=== PATIENT | male | born 1990 | race American Indian/Alaskan Native ===

== ENCOUNTER 2019-04-29 16:40 | Emergency (ER) | payer SELFPAY ==
--- NOTE | 2019-04-29 17:52 | Emergency Department Report ---
Blank Doc - Documentation Documentation: 29-year-old male that presents with n/v and abdominal pain. This initial assessment/diagnostic orders/clinical plan/treatment(s) is/are subject to change based on patient's health status, clinical progression and re- assessment by fellow clinical providers in the ED. Further treatment and workup at subsequent clinical providers discretion. Patient/guardians urged not to elope from the ED as their condition may be serious if not clinically assessed and managed. Initial orders include: 1- Patient sent to [facility] for further evaluation and treatment 2- UA 3- labs
[2019-04-29 18:52] LABS: Bilirubin,Urine NEG (Negative); Blood,Urine NEG (Negative); Color,Urine Straw (Yellow); Protein,Urine <15 mg/dL mg/dL (Negative); Urobilinogen,Urine < 2.0 mg/dL (<2.0)
[2019-04-29 19:10] LABS: Basophils # (Auto) 0.1 K/mm3 (0.0-0.1); Basophils % (Auto) 1.3 % (0.0-1.8); Eosinophils # (Auto) 0.1 K/mm3 (0.0-0.4); Eosinophils % (Auto) 1.9 % (0.0-4.3); Hematocrit 42.9 % (35.5-45.6); Hemoglobin 14.5 gm/dl (11.8-15.2); Lymphocytes # (Auto) 1.7 K/mm3 (1.2-5.4); Lymphocytes % (Auto) 31.1 % (13.4-35.0); Mean Corpuscular HGB Conc 34 % (32-34); Mean Corpuscular Volume 98 fl (84-94); Monocytes # (Auto) 0.5 K/mm3 (0.0-0.8); Monocytes % (Auto) 10.1 % (0.0-7.3); Platelet Count 230 K/mm3 (140-440); Red Blood Count 4.36 M/mm3 (3.65-5.03); Red Cell Distribution Width 13.9 % (13.2-15.2)
[2019-04-29 19:34] LABS: Alanine Aminotransferase 8 units/L (7-56); Albumin 4.6 g/dL (3.9-5); BUN/Creatinine Ratio 10; Blood Urea Nitrogen 8 mg/dL (9-20); Calcium 9.2 mg/dL (8.4-10.2); Hemolysis Index 9
[2019-04-29 20:35] VITALS: BP 122/74
[2019-04-29] MEDS ORDERED: ZOFRAN ORAL LIQ PO ONE (21:35)
[2019-04-29] MEDS ORDERED: BENTYL IM ONE (21:35)
[2019-04-29] MEDS ORDERED: CARAFATE PO ONE (21:35)
--- NOTE | 2019-04-29 21:36 | Emergency Department Report ---
ED General Adult HPI - General Chief complaint: Nausea/Vomiting/Diarrhea Stated complaint: DIARRHEA/CONSTIPATION Time Seen by Provider: 04/29/19 17:51 Source: patient, RN notes reviewed Mode of arrival: Ambulatory Limitations: No Limitations - History of Present Illness Initial comments: This is a pleasant 29-year-old gentleman. This patient is not known to this provider previously. He recently moved here from [facility]. Past medical history includes GERD, anxiety, IBS, reports colonoscopy in 2015, which she believes was negative, history of cholecystectomy in [place] in February. It is now April. He presents to the ER with a complaint of intermittent abdominal cramping, intermittent nausea, no vomiting, and loose bowel movements. He describes his diarrhea as turquoise colored, followed by green, followed by yellow. He reports 5 bowel movements within the past 24 hours. He denies hematemesis and bright red blood per rectum. He denies urinary symptoms and testicular pain. His symptoms are intermittent, did not radiate anywhere, and do not have exacerbating or relieving factors that he is aware of. He occasionally consumes tobacco, and is occasionally exposed to marijuana. -: Gradual Location: abdomen Radiation: non-radiation Severity scale (0 -10): 1 Quality: aching Consistency: intermittent Improves with: none Worsens with: none - Related Data Previous Rx's Medication Instructions Recorded Last Taken Type Dicyclomine [Bentyl] 10 mg PO QID PRN #20 capsule 04/29/19 Unknown Rx Famotidine [Pepcid] 20 mg PO BID #60 tablet 04/29/19 Unknown Rx Mercedes Root [Mercedes] 250 mg PO QID PRN #30 capsule 04/29/19 Unknown Rx Metoclopramide [Reglan] 10 mg PO QID PRN #30 tablet 04/29/19 Unknown Rx Allergies Allergy/AdvReac Type Severity Reaction Status Date / Time No Known Allergies Allergy Unverified 04/29/19 17:52 ED Review of Systems ROS: Stated complaint: DIARRHEA/CONSTIPATION Other details as noted in HPI Constitutional: denies: fever Eyes: denies: eye discharge ENT: denies: congestion Respiratory: denies: wheezing Cardiovascular: denies: chest pain, syncope Gastrointestinal: abdominal pain, nausea, diarrhea Genitourinary: denies: dysuria, testicular pain Musculoskeletal: denies: back pain, arthralgia, myalgia Skin: denies: lesions Neurological: denies: confusion Hematological/Lymphatic: denies: easy bleeding ED Past Medical Hx - Past Medical History Previous Medical History?: No - Surgical History Past Surgical History?: Yes Hx Cholecystectomy: Yes - Social History Smoking Status: Current Every Day Smoker Substance Use Type: None - Medications Home Medications: Home Medications Medication Instructions Recorded Confirmed Last Taken Type Dicyclomine [Bentyl] 10 mg PO QID PRN #20 capsule 04/29/19 Unknown Rx Famotidine [Pepcid] 20 mg PO BID #60 tablet 04/29/19 Unknown Rx Mercedes Root [Mercedes] 250 mg PO QID PRN #30 capsule 04/29/19 Unknown Rx Metoclopramide [Reglan] 10 mg PO QID PRN #30 tablet 04/29/19 Unknown Rx ED Physical Exam - General Limitations: No Limitations General appearance: alert, in no apparent distress - Head Head exam: Present: atraumatic, normocephalic - Eye Eye exam: Present: normal appearance, EOMI. Absent: nystagmus - ENT ENT exam: Present: normal exam, normal orophraynx, mucous membranes moist, norm al external ear exam - Neck Neck exam: Present: normal inspection, full ROM. Absent: tenderness, meningismus - Respiratory Respiratory exam: Present: normal lung sounds bilaterally. Absent: respiratory distress - Cardiovascular Cardiovascular Exam: Present: regular rate, normal rhythm, normal heart sounds. Absent: bradycardia, tachycardia, irregular rhythm, systolic murmur, diastolic murmur, rubs, gallop - GI/Abdominal GI/Abdominal exam: Present: soft, normal bowel sounds. Absent: distended, tenderness, guarding, rebound, rigid, pulsatile mass - Rectal Rectal exam: Present: deferred - Extremities Exam Extremities exam: Present: normal inspection, full ROM, other (2+ pulses noted in the bilateral upper, lower extremities. There is no long bone tenderness. Musculoskeletal compartments are soft. The pelvis is stable.). Absent: pedal edema, calf tenderness - Back Exam Back exam: Present: normal inspection, full ROM. Absent: tenderness, CVA tenderness (R), CVA tenderness (L), paraspinal tenderness, vertebral tenderness - Neurological Exam Neurological exam: Present: alert, oriented X3, normal gait, other (there is no facial droop. The tongue is midline. Extraocular movements are intact bilaterally. Patient speaking in full complete sentences. Shoulder shrug is intact bilaterally. Hearing is grossly intact bilaterally. Visual acuity intact to finger counting and color perception at a close distance. 5/5 strength 4 extremities. Sensation intact to light touch in 4 extremities.). Absent: motor sensory deficit - Psychiatric Psychiatric exam: Present: flat affect - Skin Skin exam: Present: warm, dry, intact, normal color. Absent: rash ED Course Vital Signs 04/29/19 04/29/19 16:54 20:33 Temperature 97.9 F 98.1 F Pulse Rate 73 78 Respiratory 16 18 Rate Blood Pressure 102/60 Blood Pressure 122/74 [Right] O2 Sat by Pulse 98 100 Oximetry ED Medical Decision Making - Lab Data Result diagrams: 04/29/19 18:53 04/29/19 18:53 Vital Signs 04/29/19 04/29/19 16:54 20:33 Temperature 97.9 F 98.1 F Pulse Rate 73 78 Respiratory 16 18 Rate Blood Pressure 102/60 Blood Pressure 122/74 [Right] O2 Sat by Pulse 98 100 Oximetry Lab Results 04/29/19 04/29/19 04/29/19 Range/Units 18:20 18:53 18:53 WBC 5.4 (4.5-11.0) K/mm3 RBC 4.36 (3.65-5.03) M/mm3 Hgb 14.5 (11.8-15.2) gm/dl Hct 42.9 (35.5-45.6) % MCV 98 H (84-94) fl MCH 33 H (28-32) pg MCHC 34 (32-34) % RDW 13.9 (13.2-15.2) % Plt Count 230 (140-440) K/mm3 Lymph % (Auto) 31.1 (13.4-35.0) % [place] % (Auto) 10.1 H (0.0-7.3) % Eos % (Auto) 1.9 (0.0-4.3) % Baso % (Auto) 1.3 (0.0-1.8) % Lymph # 1.7 (1.2-5.4) K/mm3 [place] # 0.5 (0.0-0.8) K/mm3 Eos # 0.1 (0.0-0.4) K/mm3 Baso # 0.1 (0.0-0.1) K/mm3 Seg Neutrophils % 55.6 (40.0-70.0) % Seg Neutrophils # 3.0 (1.8-7.7) K/mm3 Sodium 142 (137-145) mmol/L Potassium 4.1 (3.6-5.0) mmol/L Chloride 103.1 (98-107) mmol/L Carbon Dioxide 25 (22-30) mmol/L Anion Gap 18 mmol/L BUN 8 L (9-20) mg/dL Creatinine 0.8 (0.8-1.5) mg/dL Estimated GFR > 60 ml/min BUN/Creatinine Ratio 10 % Glucose 99 (75-100) mg/dL Calcium 9.2 (8.4-10.2) mg/dL Total Bilirubin 0.40 (0.1-1.2) mg/dL AST 17 (5-40) units/L ALT 8 (7-56) units/L Alkaline Phosphatase 75 (35-129) units/L Total Protein 7.2 (6.3-8.2) g/dL Albumin 4.6 (3.9-5) g/dL Albumin/Globulin Ratio 1.8 % Lipase 17 (13-60) units/L Urine Color Straw (Yellow) Urine Turbidity Clear (Clear) Urine pH 8.0 H (5.0-7.0) Ur Specific [place] 1.006 (1.003-1.030) Urine Protein <15 mg/dl (Negative) mg/dL Urine Glucose (UA) Neg (Negative) mg/dL Urine Ketones Neg (Negative) mg/dL Urine Blood Neg (Negative) Urine Nitrite Neg (Negative) Urine Bilirubin Neg (Negative) Urine Urobilinogen < 2.0 (<2.0) mg/dL Ur Leukocyte Esterase Lg (Negative) Urine WBC (Auto) 14.0 H (0.0-6.0) /HPF Urine RBC (Auto) 1.0 (0.0-6.0) /HPF - Medical Decision Making Differential diagnosis, including but not limited to: IBS, viral syndrome, GERD, gastritis Assessment and plan: 29-year-old gentleman with history of GERD and IBS with complaint of nausea, abdominal cramping and diarrhea. He is afebrile with reassuring vital signs. His abdomen is soft and benign, with no rebound, guarding or peritoneal signs. His screening laboratory studies were unrem arkable for significant condition. During his history and physical, his abdomen is completely soft and benign during examination, and he carries on a full conversation with this provider. His urinalysis is reviewed and appreciated, however, he did not endorse any urinary symptoms or testicular pain to this provider. We will discharge the patient with as needed nausea medication, nonsedating nonnarcotic pain medication, and he can follow-up with an outpatient primary care doctor and/or seamer. Return precautions are reviewed with patient. He did ask for information regarding insurance in this state, and he was referred to the [employer] website. The patient does not appear to have an emergent medical condition at this time, and he is medically suitable for discharge. Critical care attestation.: If time is entered above; I have spent that time in minutes in the direct care of this critically ill patient, excluding procedure time. ED Disposition Clinical Impression: History of IBS Disposition: DC-01 TO HOME OR SELFCARE Is pt being admited?: No Does the pt Need Aspirin: No Condition: Stable Additional Instructions: Avoid consumption of Motrin, ibuprofen, Naprosyn, Aleve. Avoid consumption of heavy and/or spicy foods. Avoid exposure to tobacco, marijuana and inhalational products. Take the medications as needed and/or directed. Cultures were sent today, and results will be available in the next week. Have a primary care doctor contact the medical records department to obtain urine culture results. Follow-up with the primary care doctor or GI specialist within the next month. Return to emergency room right away with projectile vomiting, change in mental status, confusion, inability to tolerate liquid feeds, new, worsened or different symptoms not present on the initial emergency room evaluation. Referrals: [facility] [Provider Group] - 3-5 Days [facility] [Provider Group] - 3-5 Days
== END 2019-04-29 22:19 | disposition home or self-care (01) ==
LOC: ED 16:40
DX: K58.8 Other irritable bowel syndrome (principal); F17.200 Nicotine dependence, unspecified, uncomplicated; Z90.49 Acquired absence of other specified parts of digestive tract; Z79.899 Other long term (current) drug therapy
CPT/HCPCS: 36415; 80053; 81001; 83690; 85025; 87086; 96372; 99283; J0500; Q0162

== ENCOUNTER 2019-05-13 10:59 | Emergency (ER) | payer SELFPAY ==
--- NOTE | 2019-05-13 11:19 | Event Note ---
ED Screening Note Date of service: 05/13/19 Time: 11:17 ED Screening Note: 29 y o male with recent gall bladder removal 02/2019 presents with abd pain with nausea and one episode of loose stools today no active vom This initial assessment/diagnostic orders/clinical plan/treatment(s) is/are s ubject to change based on patients health status, clinical progression and re- assessment by fellow clinical providers in the ED. Further treatment and workup at subsequent clinical providers discretion. Patient/guardian urged not to elope from the ED as their condition may be serious if not clinically assessed and managed. Initial orders include: labs [facility] eval
[2019-05-13 11:54] LABS: Basophils % (Auto) 0.5 % (0.0-1.8); Eosinophils # (Auto) 0.1 K/mm3 (0.0-0.4); Eosinophils % (Auto) 0.9 % (0.0-4.3); Hematocrit 45.2 % (35.5-45.6); Hemoglobin 14.8 gm/dl (11.8-15.2); Lymphocytes # (Auto) 2.5 K/mm3 (1.2-5.4); Lymphocytes % (Auto) 38.6 % (13.4-35.0); Mean Corpuscular HGB Conc 33 % (32-34); Mean Corpuscular Volume 87 fl (84-94); Monocytes # (Auto) 0.4 K/mm3 (0.0-0.8); Monocytes % (Auto) 6.8 % (0.0-7.3); Platelet Count 192 K/mm3 (140-440); Red Blood Count 5.17 M/mm3 (3.65-5.03); Red Cell Distribution Width 14.3 % (13.2-15.2)
[2019-05-13 12:19] LABS: Alanine Aminotransferase 26 units/L (7-56); Albumin 4.8 g/dL (3.9-5); BUN/Creatinine Ratio 11; Blood Urea Nitrogen 10 mg/dL (9-20); Calcium 9.7 mg/dL (8.4-10.2); Hemolysis Index 8
[2019-05-13] MEDS ORDERED: FAMOTIDINE 20 MG/2 ML INJ IV ONE (12:41)
[2019-05-13] MEDS ORDERED: DICYCLOMINE 20 MG/2 ML INJ IM ONE (12:41)
[2019-05-13] MEDS ORDERED: SODIUM CHLORIDE 0.9% 1000 ML 1,000 ML IV ONE (12:41)
[2019-05-13] MEDS ORDERED: ONDANSETRON 4 MG/2 ML INJ IV ONE (12:41)
[2019-05-13] MEDS ORDERED: KETOROLAC 30 MG/1 ML INJ IV ONE (12:41)
[2019-05-13 14:18] LABS: Bilirubin,Urine NEG (Negative); Blood,Urine NEG (Negative); Color,Urine Yellow (Yellow); Protein,Urine <15 mg/dL mg/dL (Negative); Urobilinogen,Urine < 2.0 mg/dL (<2.0)
--- NOTE | 2019-05-13 14:43 | Cat Scan Report ---
CT ABDOMEN AND PELVIS WITHOUT CONTRAST HISTORY: Nausea vomiting diarrhea with hematochezia COMPARISON: None. TECHNIQUE: Axial CT images were obtained through the abdomen and pelvis without IV contrast. Sagittal and coronal reformatted images. All CT scans at this location are performed using CT dose reduction for ALARA by means of automated exposure control. FINDINGS: CT ABDOMEN: Lung Bases: Clear. Liver: No significant abnormality. Biliary: Cholecystectomy. Spleen: No significant abnormality. Unenlarged. Pancreas: No significant abnormality. Adrenals: No significant abnormality. Kidneys: No significant abnormality. Lymphatics: No lymphadenopathy. Vasculature: No significant abnormality. Bowel/Peritoneum: No significant abnormality. No free air. No free fluid. Normal appendix. No obvious rectal abnormality. CT PELVIS: : No significant abnormality. Osseous Structures: No significant abnormality. Additional Findings: None IMPRESSION: No acute process is identified in the abdomen or pelvis. Signer Name: Rick Ambrose Jr, MD Signed: 05/13/2019 2:38 PM Workstation Name: [id number]
--- NOTE | 2019-05-13 16:03 | Emergency Department Report ---
ED Abdominal Pain HPI - General Chief Complaint: Abdominal Pain Stated Complaint: ABD PAIN Time Seen by Provider: 05/13/19 12:28 Source: patient Mode of arrival: Ambulatory Limitations: No Limitations - History of Present Illness Initial Comments: Patient is a 29-year-old male with past history of irritable bowel syndrome who is presenting with 5 days of nausea vomiting and crampy diffuse abdominal pain. Patient states he has gallbladder removed several months ago with the hopes that this will improve his symptoms. Patient states that symp toms have continued. Patient states that 2 days ago he noticed some blood in his stool however this has resolved. Pain is 6 out of 10 in severity as diffuse crampy. Severity scale (0 -10): 9 - Related Data Previous Rx's Medication Instructions Recorded Last Taken Type Dicyclomine [Bentyl] 10 mg PO QID PRN #20 capsule 04/29/19 Unknown Rx Famotidine [Pepcid] 20 mg PO BID #60 tablet 04/29/19 Unknown Rx Mercedes Root [Mercedes] 250 mg PO QID PRN #30 capsule 04/29/19 Unknown Rx Metoclopramide [Reglan] 10 mg PO QID PRN #30 tablet 04/29/19 Unknown Rx Dicyclomine [Bentyl] 20 mg PO QID #10 tablet 05/13/19 Unknown Rx Ondansetron [Zofran Odt] 4 mg PO Q8HR #10 tab.rapdis 05/13/19 Unknown Rx traMADol [Ultram] 50 mg PO Q6HR PRN #12 tablet 05/13/19 Unknown Rx Allergies Allergy/AdvReac Type Severity Reaction Status Date / Time No Known Allergies Allergy Unverified 04/29/19 17:52 ED Review of Systems ROS: Stated complaint: ABD PAIN Other details as noted in HPI Comment: All other systems reviewed and negative ED Past Medical Hx - Past Medical History Previous Medical History?: No - Surgical History Past Surgical History?: Yes Hx Cholecystectomy: Yes Additional Surgical History: tonsillectomy,scrotum surgery - Social History Smoking Status: Current Every Day Smoker Substance Use Type: Marijuana - Medications Home Medications: Home Medications Medication Instructions Recorded Confirmed Last Taken Type Dicyclomine [Bentyl] 10 mg PO QID PRN #20 capsule 04/29/19 Unknown Rx Famotidine [Pepcid] 20 mg PO BID #60 tablet 04/29/19 Unknown Rx Mercedes Root [Mercedes] 250 mg PO QID PRN #30 capsule 04/29/19 Unknown Rx Metoclopramide [Reglan] 10 mg PO QID PRN #30 tablet 04/29/19 Unknown Rx Dicyclomine [Bentyl] 20 mg PO QID #10 tablet 05/13/19 Unknown Rx Ondansetron [Zofran Odt] 4 mg PO Q8HR #10 tab.rapdis 05/13/19 Unknown Rx traMADol [Ultram] 50 mg PO Q6HR PRN #12 tablet 05/13/19 Unknown Rx ED Physical Exam - General Limitations: No Limitations General appearance: alert, in distress - Head Head exam: Present: atraumatic, normocephalic - Eye Eye exam: Present: normal appearance - ENT ENT exam: Present: mucous membranes moist - Neck Neck exam: Present: normal inspection - Respiratory Respiratory exam: Present: normal lung sounds bilaterally. Absent: respiratory distress, wheezes, rales, rhonchi - Cardiovascular Cardiovascular Exam: Present: regular rate, normal rhythm, normal heart sounds. Absent: systolic murmur, diastolic murmur, rubs, gallop - GI/Abdominal GI/Abdominal exam: Present: soft, tenderness, normal bowel sounds. Absent: distended, guarding, rebound, rigid - Rectal Rectal exam: Present: deferred - Extremities Exam Extremities exam: Present: normal inspection - Back Exam Back exam: Present: normal inspection - Neurological Exam Neurological exam: Present: alert, oriented X3 - Psychiatric Psychiatric exam: Present: normal affect, normal mood - Skin Skin exam: Present: warm, dry, intact, normal color. Absent: rash ED Medical Decision Making - Lab Data Result diagrams: 05/13/19 11:42 05/13/19 11:42 Lab Results 05/13/19 05/13/19 05/13/19 Range/Units 11:42 11:42 12:37 WBC 6.4 (4.5-11.0) K/mm3 RBC 5.17 H (3.65-5.03) M/mm3 Hgb 14.8 (11.8-15.2) gm/dl Hct 45.2 (35.5-45.6) % MCV 87 (84-94) fl MCH 29 (28-32) pg MCHC 33 (32-34) % RDW 14.3 (13.2-15.2) % Plt Count 192 (140-440) K/mm3 Lymph % (Auto) 38.6 H (13.4-35.0) % [place] % (Auto) 6.8 (0.0-7.3) % Eos % (Auto) 0.9 (0.0-4.3) % Baso % (Auto) 0.5 (0.0-1.8) % Lymph # 2.5 (1.2-5.4) K/mm3 [place] # 0.4 (0.0-0.8) K/mm3 Eos # 0.1 (0.0-0.4) K/mm3 Baso # 0.0 (0.0-0.1) K/mm3 Seg Neutrophils % 53.2 (40.0-70.0) % Seg Neutrophils # 3.4 (1.8-7.7) K/mm3 Sodium 141 (137-145) mmol/L Potassium 4.0 (3.6-5.0) mmol/L Chloride 103.2 (98-107) mmol/L Carbon Dioxide 25 (22-30) mmol/L Anion Gap 17 mmol/L BUN 10 (9-20) mg/dL Creatinine 0.9 (0.8-1.5) mg/dL Estimated GFR > 60 ml/min BUN/Creatinine Ratio 11 % Glucose 88 (75-100) mg/dL Calcium 9.7 (8.4-10.2) mg/dL Total Bilirubin 0.70 (0.1-1.2) mg/dL AST 25 (5-40) units/L ALT 26 (7-56) units/L Alkaline Phosphatase 73 (35-129) units/L Total Protein 7.9 (6.3-8.2) g/dL Albumin 4.8 (3.9-5) g/dL Albumin/Globulin Ratio 1.5 % Lipase 43 (13-60) units/L Urine Color Yellow (Yellow) Urine Turbidity Turbid (Clear) Urine pH 8.0 H (5.0-7.0) Ur Specific [place] 1.015 (1.003-1.030) Urine Protein <15 mg/dl (Negative) mg/dL Urine Glucose (UA) Neg (Negative) mg/dL Urine Ketones Neg (Negative) mg/dL Urine Blood Neg (Negative) Urine Nitrite Neg (Negative) Urine Bilirubin Neg (Negative) Urine Urobilinogen < 2.0 (<2.0) mg/dL Ur Leukocyte Esterase Neg (Negative) Urine WBC (Auto) Not Reportable Urine RBC (Auto) Not Reportable - Radiology Data CT ABDOMEN AND PELVIS WITHOUT CONTRAST HISTORY: Nausea vomiting diarrhea with hematochezia COMPARISON: None. TECHNIQUE: Axial CT images were obtained through the abdomen and pelvis without IV contrast. Sagittal and coronal reformatted images. All CT scans at this location are performed using CT dose reduction for ALARA by means of automated exposure control. FINDINGS: CT ABDOMEN: Lung Bases: Clear. Liver: No significant abnormality. Biliary: Cholecystectomy. Spleen: No significant abnormality. Unenlarged. Pancreas: No significant abnormality. Adrenals: No significant abnormality. Kidneys: No significant abnormality. Lymphatics: No lymphadenopathy. Vasculature: No significant abnormality. Bowel/Peritoneum: No significant abnormality. No free air. No free fluid. Normal appendix. No obvious rectal abnormality. CT PELVIS: : No significant abnormality. Osseous Structures: No significant abnormality. Additional Findings: None IMPRESSION: No acute process is identified in the abdomen or pelvis. Signer Name: Rick Morrell Jr, MD Signed: 05/13/2019 2:38 PM Workstation Name: [id number] Transcribed By: TTR Dictated By: RICK MORRELL JR, MD Electronically Authenticated By: RICK MORRELL JR, MD Signed Date/Time: 05/13/19 1438 - Medical Decision Making Visual 29-year-old black male who is complaining of nausea vomiting diarrhea and diffuse abdominal pain. CT is negative for acute process. Leftward studies show no significant L [place]. Patient was hydrated given antiemetics and states he does feels somewhat better. Patient has not seen a GI physician in quite some time the patient will be referred to GI. Critical care attestation.: If time is entered above; I have spent that time in minutes in the direct care of this critically ill patient, excluding procedure time. ED Disposition Clinical Impression: Gastroenteritis, History of IBS Disposition: -01 TO HOME OR SELFCARE Is pt being admited?: No Does the pt Need Aspirin: No Condition: Stable Instructions: Gastroenteritis (ED) Referrals: [facility] [Provider Group] - 3-5 Days Time of Disposition: 16:03
== END 2019-05-13 16:21 | disposition home or self-care (01) ==
LOC: ED 10:59
DX: K52.9 Noninfective gastroenteritis and colitis, unspecified (principal); F17.200 Nicotine dependence, unspecified, uncomplicated; F12.10 Cannabis abuse, uncomplicated
CPT/HCPCS: 36415; 74176; 80053; 81001; 83690; 85025; 96361; 96372; 96374; 96375; 99284; J0500; J1885; J2405; J7030

== ENCOUNTER 2019-05-19 09:23 | Emergency (ER) | payer SELFPAY ==
[2019-05-19] MEDS ORDERED: KETOROLAC 30 MG/1 ML INJ IV ONE (10:03)
[2019-05-19] MEDS ORDERED: SODIUM CHLORIDE 0.9% 1000 ML 1,000 ML IV ONE (10:03)
[2019-05-19] MEDS ORDERED: ONDANSETRON 4 MG/2 ML INJ IV ONE (10:03)
[2019-05-19 10:39] LABS: Basophils % (Auto) 0.5 % (0.0-1.8); Eosinophils % (Auto) 0.5 % (0.0-4.3); Hematocrit 46.6 % (35.5-45.6); Hemoglobin 15.5 gm/dl (11.8-15.2); Lymphocytes # (Auto) 1.7 K/mm3 (1.2-5.4); Lymphocytes % (Auto) 24.7 % (13.4-35.0); Mean Corpuscular HGB Conc 33 % (32-34); Mean Corpuscular Volume 87 fl (84-94); Monocytes # (Auto) 0.5 K/mm3 (0.0-0.8); Monocytes % (Auto) 7.2 % (0.0-7.3); Platelet Count 206 K/mm3 (140-440); Red Blood Count 5.39 M/mm3 (3.65-5.03); Red Cell Distribution Width 14.3 % (13.2-15.2)
[2019-05-19 11:00] LABS: Alanine Aminotransferase 35 units/L (7-56); Albumin 4.9 g/dL (3.9-5); BUN/Creatinine Ratio 7; Bilirubin,Direct 0.2 mg/dL (0-0.2); Blood Urea Nitrogen 8 mg/dL (9-20); Calcium 10.3 mg/dL (8.4-10.2); Hemolysis Index 10
--- NOTE | 2019-05-19 12:19 | Emergency Department Report ---
ED Abdominal Pain HPI - General Chief Complaint: Abdominal Pain Stated Complaint: ABD PAIN Time Seen by Provider: 05/19/19 10:02 Source: patient Mode of arrival: Ambulatory Limitations: No Limitations - History of Present Illness Initial Comments: 29-year-old -[place] male with no reported past medical history presents emergency department complaining of 3 day history of waxing and waning nausea, vomiting, diarrhea. States he had about 5-7 pounds of vomiting and episodes of diarrhea accompanied with diffuse abdominal pain and cramping 11 unknown etiology. Was no fever, chills, sweats no chest pain or palpitations. Reports no rashes no foreign travel normal medications. Reports no palliative factors but things could get worse with direct pressure to the abdomen, certain movements and and certain foods. States he feels like he has a blockage however he has been having bowel movements MD Complaint: abdominal pain Location: diffuse Radiation: none Severity scale (0 -10): 4 Quality: cramping, aching Consistency: constant Associated Symptoms: nausea, vomiting, diarrhea. denies: chills, constipation, hematemesis, hematochezia, melena, syncope - Related Data Previous Rx's Medication Instructions Recorded Last Taken Type Dicyclomine [Bentyl] 10 mg PO QID PRN #20 capsule 04/29/19 Unknown Rx Famotidine [Pepcid] 20 mg PO BID #60 tablet 04/29/19 Unknown Rx Mercedes Root [Mercedes] 250 mg PO QID PRN #30 capsule 04/29/19 Unknown Rx Metoclopramide [Reglan] 10 mg PO QID PRN #30 tablet 04/29/19 Unknown Rx Dicyclomine [Bentyl] 20 mg PO QID #10 tablet 05/13/19 Unknown Rx Ondansetron [Zofran Odt] 4 mg PO Q8HR #10 tab.rapdis 05/13/19 Unknown Rx traMADol [Ultram] 50 mg PO Q6HR PRN #12 tablet 05/13/19 Unknown Rx Hyoscyamine Subl [Levsin Sl 0.125 0.125 mg SL Q6HR PRN #20 tab 05/19/19 Unknown Rx TAB] Ondansetron [Zofran ODT TAB] 8 mg PO Q12HR #14 tab.rapdis 05/19/19 Unknown Rx Allergies Allergy/AdvReac Type Severity Reaction Status Date / Time No Known Allergies Allergy Unverified 05/19/19 09:31 ED Review of Systems ROS: Stated complaint: ABD PAIN Other details as noted in HPI Comment: All other systems reviewed and negative ED Past Medical Hx - Surgical History Hx Cholecystectomy: Yes Additional Surgical History: tonsillectomy,scrotum surgery - Social History Smoking Status: Current Some Day Smoker Substance Use Type: Alcohol - Medications Home Medications: Home Medications Medication Instructions Recorded Confirmed Last Taken Type Dicyclomine [Bentyl] 10 mg PO QID PRN #20 capsule 04/29/19 Unknown Rx Famotidine [Pepcid] 20 mg PO BID #60 tablet 04/29/19 Unknown Rx Mercedes Root [Mercedes] 250 mg PO QID PRN #30 capsule 04/29/19 Unknown Rx Metoclopramide [Reglan] 10 mg PO QID PRN #30 tablet 04/29/19 Unknown Rx Dicyclomine [Bentyl] 20 mg PO QID #10 tablet 05/13/19 Unknown Rx Ondansetron [Zofran Odt] 4 mg PO Q8HR #10 tab.rapdis 05/13/19 Unknown Rx traMADol [Ultram] 50 mg PO Q6HR PRN #12 tablet 05/13/19 Unknown Rx Hyoscyamine Subl [Levsin Sl 0.125 0.125 mg SL Q6HR PRN #20 tab 05/19/19 Unknown Rx TAB] Ondansetron [Zofran ODT TAB] 8 mg PO Q12HR #14 tab.rapdis 05/19/19 Unknown Rx ED Physical Exam - General Limitations: No Limitations General appearance: alert, in no apparent distress - Head Head exam: Present: atraumatic, normocephalic - Eye Eye exam: Present: normal appearance, PERRL, EOMI - ENT ENT exam: Present: normal exam, normal orophraynx, mucous membranes moist - Neck Neck exam: Present: normal inspection - Respiratory Respiratory exam: Present: normal lung sounds bilaterally. Absent: respiratory distress - Cardiovascular Cardiovascular Exam: Present: regular rate, normal rhythm. Absent: systolic murmur, diastolic murmur, rubs, gallop - GI/Abdominal GI/Abdominal exam: Present: soft, normal bowel sounds - Rectal Rectal exam: Present: deferred - Extremities Exam Extremities exam: Present: normal inspection - Back Exam Back exam: Present: normal inspection - Neurological Exam Neurological exam: Present: alert, oriented X3 - Psychiatric Psychiatric exam: Present: normal affect, normal mood - Skin Skin exam: Present: warm, dry, intact, normal color. Absent: rash ED Medical Decision Making - Lab Data Result diagrams: 05/19/19 10:24 05/19/19 10:24 - Radiology Data Radiology results: report reviewed [facility] [address] [place] [address] Cat Scan Report Signed Patient: SUZIE KIM MR#: [id number] : 1990 Acct:[id number] Age/Sex: 29 / M ADM Date: 05/19/19 Loc: ED Attending Dr: Ordering Physician: MAURICIO GUTIERREZ Date of Service: 05/19/19 Procedure(s): CT abdomen pelvis w con Accession Number(s): [id number] cc: MAURICIO GUTIERREZ CT ABDOMEN AND PELVIS WITH IV CONTRAST INDICATION: Right mid abdominal pain. COMPARISON: None available. TECHNIQUE: Axial CT images were obtained through the abdomen and pelvis after 100 mL IV contrast. All CT scans at this location are performed using CT dose reduction for ALARA by means of automated exposure control. FINDINGS -- ABDOMEN: Lung Bases: No acute abnormality. Liver: Normal. Gallbladder: Removed. Bile Ducts: Normal. Pancreas: Normal. Spleen: Normal. Adrenals: Normal. Right Kidney and Proximal Ureter: Normal. Left Kidney and Proximal Ureter: Normal. Stomach and Bowel: Normal. Lymph Nodes: No significant adenopathy. Aorta: No significant abnormality. IVC: Normal. Additional Findings: None. FINDINGS -- PELVIS: Urinary Bladder and Distal Ureters: Normal. Reproductive Organs: No acute abnormality. Appendix: Normal. Bowel: No acute abnormality. Free Fluid: None. Lymph Nodes: No significant adenopathy. Additional Findings: None. Skeletal System: No acute abnormality. IMPRESSION: 1. No acute process in the abdomen or pelvis. No evidence of biloma or evidence of bowel obstruction. Signer Name: Michael Engle MD Signed: 05/19/2019 12:19 PM Workstation Name: [id number] Transcribed By: BC Dictated By: Michael Engle MD Electronically Authenticated By: Michael Engle MD Signed Date/Time: 05/19/19 1219 DD/ 1216 TD/TT: - Medical Decision Making 29-year-old [place] male presents emergency Department with abdominal pain nausea vomiting and diarrhea. The abdominal pain is of unclear etiology. Examination did show evidence of pain to the abdomen abdomen region however his arm E laboratory studies were normal. CT scan was obtained and was also found to be of normal variation as well. I discussed with the patient the level of uncertainty with undifferentiated abdominal pain and the need to follow-up as noted on the discharge instructions. He has been advised to return to emergency department immediately should he feel his pain is is worsening or overall condition is worsening. He's been instructed to phone the emergency department if he is unsure of what to do. Advised to return within 24 hours for a recheck or see their primary care doctor within 24 hours for reexamination due to the possibility of an evolving significant surgical or medical process. Critical care attestation.: If time is entered above; I have spent that time in minutes in the direct care of this critically ill patient, excluding procedure time. ED Disposition Clinical Impression: Gastroenteritis, Abdominal pain Disposition: DC-01 TO HOME OR SELFCARE Is pt being admited?: No Does the pt Need Aspirin: No Condition: Stable Instructions: Acute Abdominal Pain (ED), Gastroenteritis (ED) Referrals: [facility] [Provider Group] - [address] [facility] [Provider Group] - 24 Hours
--- NOTE | 2019-05-19 12:24 | Cat Scan Report ---
CT ABDOMEN AND PELVIS WITH IV CONTRAST INDICATION: Right mid abdominal pain. COMPARISON: None available. TECHNIQUE: Axial CT images were obtained through the abdomen and pelvis after 100 mL IV contrast. All CT scans a t this location are performed using CT dose reduction for ALARA by means of automated exposure contro l. FINDINGS -- ABDOMEN: Lung Bases: No acute abnormality. Liver: Normal. Gallbladder: Removed. Bile Ducts: Normal. Pancreas: Normal. Spleen: Normal. Adrenals: Normal. Right Kidney and Proximal Ureter: Normal. Left Kidney and Proximal Ureter: Normal. Stomach and Bowel: Normal. Lymph Nodes: No significant adenopathy. Aorta: No significant abnormality. IVC: Normal. Additional Findings: None. FINDINGS -- PELVIS: Urinary Bladder and Distal Ureters: Normal. Reproductive Organs: No acute abnormality. Appendix: Normal. Bowel: No acute abnormality. Free Fluid: None. Lymph Nodes: No significant adenopathy. Additional Findings: None. Skeletal System: No acute abnormality. IMPRESSION: 1. No acute process in the abdomen or pelvis. No evidence of biloma or evidence of bowel obstruction. Signer Name: Michael Engle MD Signed: 05/19/2019 12:19 PM Workstation Name: [id number]
[2019-05-19] MEDS ORDERED: ACETAMINOPHEN 325 MG TAB PO ONE (13:22)
[2019-05-19] MEDS ORDERED: ACETAMINOPHEN 325 MG TAB ONE (13:26)
[2019-05-19 14:19] LABS: Bilirubin,Urine NEG (Negative); Blood,Urine NEG (Negative); Color,Urine Yellow (Yellow); Mucus,Urine 1+ /HPF; Protein,Urine <15 mg/dL mg/dL (Negative); RBC,Urine < 1.0 /HPF (0.0-6.0); Urobilinogen,Urine < 2.0 mg/dL (<2.0); WBC,Urine < 1.0 /HPF (0.0-6.0)
== END 2019-05-19 13:28 | disposition home or self-care (01) ==
LOC: ED 09:23
DX: K52.9 Noninfective gastroenteritis and colitis, unspecified (principal); R11.2 Nausea with vomiting, unspecified; F17.200 Nicotine dependence, unspecified, uncomplicated; Z79.899 Other long term (current) drug therapy; Z90.49 Acquired absence of other specified parts of digestive tract
CPT/HCPCS: 36415; 74177; 80048; 80076; 81001; 83690; 85025; 96361; 96374; 96375; 99284; J1885; J2405; J7030; Q9967